=== PATIENT | female | born 1965 | race Caucasian/White ===

== ENCOUNTER → 2020-12-25 15:23 | Outpatient (BNVA) | payer OTHER, SELFPAY | PROVIDERS: PCP Psychiatry & Neurology Psychiatry; Visit Provider Anesthesiology | DX: M47.817 Spondylosis without myelopathy or radiculopathy, lumbosacral region (principal); M46.1 Sacroiliitis, not elsewhere classified; M53.3 Sacrococcygeal disorders, not elsewhere classified | CPT/HCPCS: 99202 ==

== ENCOUNTER 2021-01-30 06:55 | Outpatient (REF) | payer OTHER, SELFPAY | END 2021-01-30 06:56 | disposition home or self-care (01) | LOC: HO.RADIR 06:55 | PROVIDERS: Visit Provider Anesthesiology | DX: Z13.89 Encounter for screening for other disorder (principal) ==